=== PATIENT | male | born 1960 | race Caucasian/White ===

== ENCOUNTER → 2019-08-07 11:56 | Outpatient (BNVA) | payer SELFPAY | PROVIDERS: Family Provider Nurse Practitioner Family; Visit Provider Nurse Practitioner Family | DX: I10 Essential (primary) hypertension (principal); E03.9 Hypothyroidism, unspecified; E78.00 Pure hypercholesterolemia, unspecified; E11.9 Type 2 diabetes mellitus without complications; E55.9 Vitamin D deficiency, unspecified | CPT/HCPCS: 80053; 80061; 81001; 82306; 83036; 84443; 85025 ==

== ENCOUNTER → 2019-12-19 14:30 | Outpatient (BNVA) | payer SELFPAY | PROVIDERS: Family Provider Nurse Practitioner Family; Visit Provider Nurse Practitioner Family | DX: I10 Essential (primary) hypertension (principal); E03.9 Hypothyroidism, unspecified; E55.9 Vitamin D deficiency, unspecified; E78.2 Mixed hyperlipidemia; E11.9 Type 2 diabetes mellitus without complications | CPT/HCPCS: 80053; 80061; 81003; 82306; 83036; 83721; 84443 ==

== ENCOUNTER 2020-10-12 11:03 | Emergency (ER) | payer MEDICAID, SELFPAY ==
[2020-10-12 11:58] VITALS: BP 173/107; PULSE 82; RESP 16; TEMP 36.6; O2SAT 96; BMI 29.9
--- NOTE | 2020-10-12 12:56 | CT_ITS ---
WS: [id number] CT foot RT w con [id number] REASON FOR EXAM: Diabetes, infection IV CONTRAST ADMINISTERED: 95 mL of Omnipaque 300. TOTAL EXAM DLP: 193.[address] scans at [facility] use at least one of these dose optimization techniques: automat ed exposure control; mA and/or kV adjustment per patient size (includes targeted exams where dose is matched to clinical indication); or iterative reconstruction. FINDINGS: No diffuse or focal bony abnormality is identified. The joint spaces of the forefoot, midfoot, and hindfoot are intact. The contrast enhancement does not identify any significant inflammatory process or focal fluid collec tion. CT/CT foot RT w con [id number] IMPRESSION: No significant bony or joint abnormality.
--- NOTE | 2020-10-12 12:56 | XR_ITS ---
WS: [id number] XR chest 1V portable [id number] REASON FOR EXAM: covid + FINDINGS: The heart and mediastinum are within normal limits. Calcified granulomatous disease is present bilaterally. No active pulmonary parenchymal or pleural di sease is noted. The bony thorax is intact. The chest is unchanged compared to 06/23/2012. XR/XR chest 1V portable [id number] IMPRESSION: No acute chest abnormality.
--- NOTE | 2020-10-12 13:03 | ED_ITS ---
HPI - Extremity Problem General: Chief complaint: Extremity Problem,Nontraumatic Stated complaint: R foot pain Time Seen by Provider: 10/12/20 12:52 History of Present Illness: HPI Narrative: Patient is Covid positive patient tested 3 days ago. Also developed 2 days ago right foot pain swelling and heat to the area patient is diabetic not sure if he stepped on anything or not swelling extends up to the ankle he says. Patient states that his positive Covid test was at home test that his girlfriend brought home from work and they completed. MD Complaint: extremity pain Onset (ago): day(s) Pain Consistency: constant Location: right and lower extremity Severity scale (1-10): 5 Quality: aching Radiation: proximal Relieving factors: immobilization Exacerbating factors: range of motion and weight bearing Associated symptoms: Reports other (Does have Covid symptoms); Deny chest pain, fever(s) or rash Review of Systems Narrative: Patient is Covid positive Const: Denies: fever(s), chills or body aches Eyes: Denies: change in vision or blurry vision ENMT: Denies: throat pain or nasal congestion Card: Denies: chest pain or dyspnea on exertion Resp: Reports: non-productive cough; Denies: dyspnea or productive cough GI: Denies: abdominal pain, nausea or vomiting : Denies: difficulty urinating Musc: Reports: extremity pain (Right foot pain and swelling x2 days possible puncture wound) and other (Myalgias) Skin/Breast: Denies: rash Neuro: Denies: headache(s) Psych: Denies: anxiety or depression Bernard/Lymph: Denies: easy bruising PFS ED PFSH: Medical History Arthritis Diabetes Essential hypertension Hypothyroid Mixed hyperlipidemia Vitamin D deficiency Social History Smoking and tobacco status: never smoked Second hand smoke exposure: No Smoking risk assessment/counseling performed?: No Alcohol intake: never Desire information about alcohol rehabilitation?: No Counseling given: No Desire information about substance/drug rehabilitation?: No Counseling given: No Physical Exam Const: COMMON NORMALS: no acute distress, average body habitus and patient oriented x3 HENMT: COMMON NORMALS: normocephalic HEAD & SCALP: normal to inspection and normocephalic FACE & SINUS: normal facial exam Eye: COMMON NORMALS: conjunctivae normal GENERAL EYE: appearance normal, both eyes and all related structures CONJUNCTIVA: Yes conjunctivae normal Neck/C-Spine: COMMON NORMALS: no JVD Chest: COMMONS NORMALS: normal inspection of the chest Resp: COMMON NORMALS: normal respiratory effort and clear to auscultation bilaterally AUSCULTATION: clear to auscultation bilaterally Cardio: COMMON NORMALS: no JVD, regular rate and regular rhythm RATE: regular rate RHYTHM: regular rhythm GI: COMMON NORMALS: Normal to inspection, nondistended, normoactive bowel sounds present Extremity: COMMON NORMALS: full ROM RIGHT LOWER EXTREMITY: Yes foot & digits (Right foot with swelling erythema red streak extending to the midfoot with ) OTHER: With possible puncture wound plantar surface this is where the red area and streak extends from tenderness to all areas of the foot. Neuro: COMMON NORMALS: patient oriented x3 Course Vital Signs: Vital signs: Vital Signs Temperature 97.9 F 10/12/20 11:58 Pulse Rate 82 10/12/20 15:59 Respiratory Rate 16 10/12/20 15:59 Blood Pressure 144/83 10/12/20 15:59 Pulse Oximetry 99 10/12/20 15:59 MDM - Extremity (Nontraumatic) MDM Narrative: Medical decision making narrative: Discussed patient's case presenting signs symptoms laboratory and radiology results with Dr. Romo. Agreed on plan to discharge patient follow-up in wound clinic. Patient be placed on 2 different antibiotics. Lab Data: Labs: Lab Results 10/12/20 10/12/20 10/12/20 Range/Units 13:25 13:25 13:25 WBC 11.3 H (4.0-10.0) 10^3/ uL RBC 5.46 H (4.1-5.3) 10^6/u L Hgb 16.3 (11.7-16.6) g/dL Hct 49.4 (42.0-52.0) % MCV 90.5 (80-94) fL MCH 29.9 (28.0-34.0) pg MCHC 33.0 (30.0-36.0) g/dL RDW 13.0 (12.1-15.1) % Plt Count 225 (130-400) 10^3/c mm MPV 11.1 H (7.4-10.4) fL Neut % (Auto) 70.9 % Lymph % (Auto) 18.0 % [place] % (Auto) 9.2 % Eos % (Auto) 1.0 % Baso % (Auto) 0.5 % Neut # (Auto) 8.02 H (1.8-7.7) 10^3/u L Lymph # (Auto) 2.0 (0.8-4.8) 10^3/u L [place] # (Auto) 1.0 H (0.2-0.9) 10^3/u L Eos # (Auto) 0.1 (0.0-0.8) 10^3/u L Baso # (Auto) 0.1 (0.0-0.1) 10^3/u L Nucleated RBC % (a uto) 0 % Nucleated RBCs # 0.0 /100WBC Sodium 136 (136-145) mmol/L Potassium 4.4 (3.5-5.1) mmol/L Chloride 100 (98-107) mmol/L Carbon Dioxide 25 (22-29) mmol/L Anion Gap 15.4 (5-19) BUN 12 (8-23) mg/dL Creatinine 0.8 (0.7-1.2) mg/dL GFR Calculation 98.6 (90-130) mL/min Glucose 265 H (65-115) mg/dL Calculated Osmolal ity 291 (285-295) mOsm/k g Lactate 1.6 (0.5-2.2) mmol/L Calcium 8.9 (8.5-10.5) mg/dL Total Bilirubin 0.6 (0.15-1.2) mg/dL AST 10 (0-40) U/L ALT 12 (0-41) U/L Alkaline Phosphata se 75 (40-130) IU/L Total Protein 7.1 (6.6-8.7) g/dL Albumin 4.4 (3.5-5.2) g/dL Globulin 2.7 (1.3-4.6) g/dL Urine Color (Yellow) Urine Appearance (CLEAR) Urine pH (5-7) Ur Specific Gravit y (1.005-1.030) Urine Protein (Negative) Urine Glucose (UA) (Normal) Urine Ketones (Negative) Urine Blood (Negative) Urine Nitrate (Negative) Urine Bilirubin (Negative) Urine Urobilinogen (Negative) mg/dL Ur Leukocyte Karina ase (Negative) SARS-CoV-2 Ag (Rap id) (Negative) 10/12/20 10/12/20 Range/Units 13:25 14:32 WBC (4.0-10.0) 10^3/ uL RBC (4.1-5.3) 10^6/u L Hgb (11.7-16.6) g/dL Hct (42.0-52.0) % MCV (80-94) fL MCH (28.0-34.0) pg MCHC (30.0-36.0) g/dL RDW (12.1-15.1) % Plt Count (130-400) 10^3/c mm MPV (7.4-10.4) fL Neut % (Auto) % Lymph % (Auto) % [place] % (Auto) % Eos % (Auto) % Baso % (Auto) % Neut # (Auto) (1.8-7.7) 10^3/u L Lymph # (Auto) (0.8-4.8) 10^3/u L [place] # (Auto) (0.2-0.9) 10^3/u L Eos # (Auto) (0.0-0.8) 10^3/u L Baso # (Auto) (0.0-0.1) 10^3/u L Nucleated RBC % (a uto) % Nucleated RBCs # /100WBC Sodium (136-145) mmol/L Potassium (3.5-5.1) mmol/L Chloride (98-107) mmol/L Carbon Dioxide (22-29) mmol/L Anion Gap (5-19) BUN (8-23) mg/dL Creatinine (0.7-1.2) mg/dL GFR Calculation (90-130) mL/min Glucose (65-115) mg/dL Calculated Osmolal ity (285-295) mOsm/k g Lactate (0.5-2.2) mmol/L Calcium (8.5-10.5) mg/dL Total Bilirubin (0.15-1.2) mg/dL AST (0-40) U/L ALT (0-41) U/L Alkaline Phosphata se (40-130) IU/L Total Protein (6.6-8.7) g/dL Albumin (3.5-5.2) g/dL Globulin (1.3-4.6) g/dL Urine Color Yellow (Yellow) Urine Appearance Clear (CLEAR) Urine pH 5 (5-7) Ur Specific Gravit y 1.020 (1.005-1.030) Urine Protein Neg (Negative) Urine Glucose (UA) 4+ H (Normal) Urine Ketones Negative (Negative) Urine Blood Neg (Negative) Urine Nitrate Negative (Negative) Urine Bilirubin Neg (Negative) Urine Urobilinogen Norm (Negative) mg/dL Ur Leukocyte Karina ase Negative (Negative) SARS-CoV-2 Ag (Rap id) Negative (Negative) Discharge Plan Discharge Prescriptions: No Action cholecalciferol (vitamin D3) 50 mcg (2,000 unit) capsule 50 mcg PO QAM RF: 0 Fish Oil 1 cap PO QAM RF: 0 pioglitazone 15 mg tablet 15 mg PO QAM RF: 0 metformin 500 mg tablet 2,000 mg PO QAM RF: 0 levothyroxine 50 mcg tablet 50 mcg PO QAM RF: 0 rosuvastatin 5 mg tablet 5 mg PO QAM RF: 0 Januvia 100 mg tablet 100 mg PO QAM RF: 0 Coding Level of Care Code ED Community Service Patrol Officer for Chg Fwd Exam Comprehensive
[2020-10-12 13:38] LABS: Basophils # 0.1 10^3/uL (0.0-0.1); Basophils % 0.5 %; Eosinophils # 0.1 10^3/uL (0.0-0.8); Hematocrit 49.4 % (42.0-52.0); Hemoglobin 16.3 g/dL (11.7-16.6); Mean Corpuscular Hemoglobin 29.9 pg (28.0-34.0); Mean Corpuscular Volume 90.5 fL (80-94); Mean Platelet Volume 11.1 fL (7.4-10.4); Monocytes % 9.2 %; Neutrophils # 8.02 10^3/uL (1.8-7.7); Neutrophils % 70.9 %; Nucleated Red Blood Cells % 0 %; Platelet Count 225 10^3/cmm (130-400); Red Blood Count 5.46 10^6/uL (4.1-5.3); White Blood Count 11.3 10^3/uL (4.0-10.0)
[2020-10-12 13:57] LABS: Lactate (Lactic Acid level) 1.6 mmol/L (0.5-2.2)
[2020-10-12 13:58] LABS: Alanine Aminotransferase 12 U/L (0-41); Albumin Level 4.4 g/dL (3.5-5.2); Alkaline Phosphatase 75 IU/L (40-130); Anion Gap 15.4 (5-19); Aspartate Amino Transferase 10 U/L (0-40); Blood Urea Nitrogen 12 mg/dL (8-23); Calcium 8.9 mg/dL (8.5-10.5); Carbon Dioxide 25 mmol/L (22-29); Chloride 100 mmol/L (98-107); Globulin 2.7 g/dL (1.3-4.6); Glomerular Filtration Rate 98.6 mL/min (90-130); Glucose 265 mg/dL (65-115); Osmolality Calculated 291 mOsm/kg (285-295); Potassium 4.4 mmol/L (3.5-5.1); Sodium 136 mmol/L (136-145); Total Bilirubin 0.6 mg/dL (0.15-1.2); Total Protein 7.1 g/dL (6.6-8.7)
[2020-10-12 14:05] LABS: SARS Covid-2 Antigen Negative (Negative)
[2020-10-12 14:41] LABS: Add Urine Microscopic? NO; Charge for UA Resulting for Rev
[2020-10-12 14:44] LABS: Bilirubin Urine Neg (Negative); Blood Urine Neg (Negative); Glucose Urine UA 4+ (Normal); Ketones Urine Negative (Negative); Leukocyte Esterase Urine Negative (Negative); Nitrate Urine Negative (Negative); Protein Urine Neg (Negative); Urine Appearance Clear (CLEAR); Urine Color Yellow (Yellow); Urobilinogen Urine Norm (Negative); pH Urine 5 (5-7)
[2020-10-12] MEDS: iohexol 300 mg/mL 100 mL Btl IV (15:32)
[2020-10-12] MEDS: clindamycin 300 MG/50 ML PREMIX 100 MG IV (15:57)
[2020-10-12 15:59] VITALS: BP 144/83; PULSE 82; RESP 16; O2SAT 99
[2020-10-12] MEDS: ciprofloxacin 200 MG/100 ML PREMIX 100 MG IV (16:31)
[2020-10-12 16:34] LABS: INR 1.01 (0.8-1.2)
[2020-10-12] MEDS: HYDROcodone-acetaminophen 5-325 mg Tablet 1 TAB PO (16:56)
[2020-10-12] MEDS: tetanus-dipt-pertussis 0.5 mL SDV IM (16:57)
[2020-10-12 17:32] VITALS: PULSE 87; RESP 16; O2SAT 98
--- NOTE | 2020-10-13 10:33 | DCPLANNER ---
live study manager had message to schedule a follow up appointment for patient with Wound Care. live study manager called Wound Care, spoke with Coby, gave clinic patients information. A follow up appointment was scheduled for Monday, October 14, 2020 at 8:30. live study manager called patient and gave patient the appointment information. Patients significant other stated that patient took a home COVID test, and it was positive, and she has reported it the positive to the [facility]. live study manager gave patient the phone number to Wound Care for patient to reschedule appointment after patient is off quarantine. live study manager called and updated Coby at Wound Care.
== END 2020-10-12 17:33 | disposition home or self-care (01) ==
PROVIDERS: Emergency Provider Nurse Practitioner Family; PCP Nurse Practitioner Family
DX: M79.671 Pain in right foot (principal); R22.41 Localized swelling, mass and lump, right lower limb; U07.1 COVID-19; E11.9 Type 2 diabetes mellitus without complications; I10 Essential (primary) hypertension; E03.9 Hypothyroidism, unspecified; E78.2 Mixed hyperlipidemia; Z79.84 Long term (current) use of oral hypoglycemic drugs
CPT/HCPCS: 71045; 73701; 80053; 81003; 83605; 85025; 85610; 87040; 87426; 90471; 90715; 96365; 96367; 99284; J0744; J3490; Q9967

== ENCOUNTER → 2021-02-18 11:48 | Outpatient (BNVA) | payer MEDICAID, SELFPAY | PROVIDERS: PCP Nurse Practitioner Family; Visit Provider Nurse Practitioner Family | DX: E11.9 Type 2 diabetes mellitus without complications (principal); E55.9 Vitamin D deficiency, unspecified; E03.9 Hypothyroidism, unspecified; Z12.5 Encounter for screening for malignant neoplasm of prostate; E78.2 Mixed hyperlipidemia; Z12.11 Encounter for screening for malignant neoplasm of colon | CPT/HCPCS: 80053; 80061; 81003; 82306; 83036; 84439; 84443; 85025; G0103 ==

== ENCOUNTER → 2021-04-28 10:48 | Outpatient (BNVA) | payer MEDICAID, SELFPAY | PROVIDERS: PCP Nurse Practitioner Family; Visit Provider Surgery | DX: Z01.812 Encounter for preprocedural laboratory examination (principal); Z20.822 Contact with and (suspected) exposure to COVID-19 | CPT/HCPCS: 87635 ==

== ENCOUNTER 2021-04-30 07:26 | Day surgery (SDC) | payer MEDICAID, SELFPAY ==
[2021-04-29 08:05] VITALS: BMI 30.7
--- NOTE | 2021-04-30 08:00 | ANES.PREANE2 ---
Pre-Anesthetic Assessment Height/Weight: Height 1.65 m Weight 83.915 kg Operation Date: 04/30/21 08:45 Proposed Procedures p Colonoscopy 09382 Z12.11(Not Applicable) - Gary Anthony MD Familial anesthetic complications: None Was Beta Lashell taken within 24 hours: N/A Was Clonidine taken within 24 hours: N/A Social No alcohol and No tobacco Exam alert, oriented x 3, clear to auscultation bilaterally and regular rate & rhythm Airway Submandibular: within normal limits Cervical ROM: within normal limits Mallampati: Class II Dentition: false Metabolic Diabetes Mellitus, Hyperlipidemia and Thyroid Disease Anesthetic Plan ASA status: 3 Anesthesia: MAC Medications/Allergies Home Medications Medication Instructions Recorded Confirmed Last Taken Type cholecalciferol (vitamin D3) 50 50 mcg PO QAM 08/21/20 04/29/21 10/12/20 08:00 History mcg (2,000 unit) capsule levothyroxine 50 mcg tablet See Rx Instructions .ROUTE 03/23/21 04/29/21 Unknown Rx .COMPLEX #30 tab rosuvastatin 5 mg tablet 5 mg PO QAM #30 tab 03/25/21 04/29/21 Unknown Rx pioglitazone 15 mg tablet See Rx Instructions .ROUTE 03/29/21 04/29/21 Unknown Rx .COMPLEX #30 tab semaglutide (Ozempic) 0.25 mg (0.2 mL) SUBCUT .weekly 30 04/14/21 04/29/21 Unknown Rx Days #1.5 ml metformin 500 mg tablet See Rx Instructions .ROUTE 04/19/21 04/29/21 Unknown Rx .COMPLEX #360 tab Allergies Allergy/AdvReac Type Severity Reaction Status Date / Time empagliflozin Allergy Severe ALGY-Wheezi Verified 02/24/21 13:13 [From Jardipresley] [facility] Anesthesia Medical History Arthritis Colon cancer screening Diabetes Essential hypertension Hypothyroid Mixed hyperlipidemia Prostate cancer screening Vitamin D deficiency Social History Smoking and tobacco status: never smoked Second hand smoke exposure: No Smoking risk assessment/counseling performed?: No Alcohol intake: never Desire information about alcohol rehabilitation?: No Counseling given: No Desire information about substance/drug rehabilitation?: No Counseling given: No Data Anesthesia Cardiac Studies: No Data to Display
[2021-04-30 08:19] VITALS: BP 129/92; PULSE 87; RESP 18; TEMP 37.1; O2SAT 98
[2021-04-30] MEDS: sodium chloride 0.9% 1,000 ML 30 ML IV (08:33)
--- NOTE | 2021-04-30 09:31 | P.HP_ITS ---
Same Day Surgery H&P Indication for Procedure/HPI DATE OF PROCEDURE: April 30, 2021 CHIEF COMPLAINT/INDICATIONFOR SURGICAL PROCEDURE: screening PREOP DIAGNOSIS: diagnostic PLANNED PROCEDURE: Operation Date: 04/30/21 08:45 Proposed Procedures p Colonoscopy 38820 Z12.11(Not Applicable) - Gary Anthony MD Medications/Allergies* Home Medications Medication Instructions Recorded Confirmed Type cholecalciferol (vitamin D3) 50 50 mcg PO QAM 08/21/20 04/29/21 History mcg (2,000 unit) capsule levothyroxine 50 mcg tablet 50 mcg PO DAILY 04/30/21 04/30/21 History metformin 500 mg tablet 2,000 mg PO DAILY 04/30/21 04/30/21 History pioglitazone 15 mg tablet (Actos) 15 mg PO DAILY 04/30/21 04/30/21 History Allergies/Adverse Reactions Allergy/AdvReac Type Severity Reaction Status Date / Time empagliflozin Allergy Severe ALGY-Wheezi Verified 02/24/21 13:13 [From Jardiance] ng Current Medications: Generic Name Dose Route Start Last Admin Trade Name Freq PRN Reason Stop Dose Admin Sodium Chloride 1,000 mls @ 30 mls/hr 04/30/21 08:15 04/30/21 08:33 Sodium Chloride 0.9% IV 05/01/21 08:14 30 mls/hr .Q24H ALEXANDREA Administration Pertinent History/Comorbid Conditions* Medical History (Updated 02/18/21 @ 11:29 by ANTONY Ace) Arthritis Colon cancer screening Diabetes Essential hypertension Hypothyroid Mixed hyperlipidemia Prostate cancer screening Vitamin D deficiency Social History Smoking and tobacco status: never smoked Second hand smoke exposure: No Smoking risk assessment/counseling performed?: No Alcohol intake: never Desire information about alcohol rehabilitation?: No Counseling given: No Desire information about substance/drug rehabilitation?: No Counseling given: No Pertinent Exam Findings alert, oriented x 3 and regular rate & rhythm Recommendations Surgery/Procedure today Coding Level of Care Code Acute Clinical Information Systems Director for Roldan Cervantes
[2021-04-30 10:11] VITALS: BP 113/79; PULSE 71; RESP 16; TEMP 36.1; O2SAT 96
[2021-04-30 10:23] VITALS: BP 112/75; PULSE 78; RESP 16; O2SAT 97
--- NOTE | 2021-04-30 10:59 | ANE.PACU2 ---
Documented by User: Miguel A Delgadillo Jr, CRNA 04/30/21 11:00 Inpatient post-anesthesia follow up: Airway intact: Yes Vital signs: Temperature 97 F Pulse Rate 78 Respiratory Rate 16 Blood Pressure 112/75 Pulse Oximetry 97 Oxygen Delivery Me thod Room Air Oxygen Flow Rate Fraction of Inspir ed Oxygen Hydration adequate: Yes Nausea and vomiting: No Pain level: 1 Mental status: Baseline
== END 2021-04-30 10:34 | disposition home or self-care (01) ==
PROVIDERS: PCP Nurse Practitioner Family; Visit Provider Surgery
PROC: 0DJD8ZZ Inspection of Lower Intestinal Tract, Via Natural or Artificial Opening Endoscopic (ICD-10-PCS; CPT 45378; principal; 2021-04-30 08:45)
DX: Z12.11 Encounter for screening for malignant neoplasm of colon (principal); K57.30 Diverticulosis of large intestine without perforation or abscess without bleeding; D12.5 Benign neoplasm of sigmoid colon; D12.8 Benign neoplasm of rectum; E11.9 Type 2 diabetes mellitus without complications; M19.90 Unspecified osteoarthritis, unspecified site; I10 Essential (primary) hypertension; E03.9 Hypothyroidism, unspecified; E78.2 Mixed hyperlipidemia
CPT/HCPCS: 45380; 88305; J2704; J7030

== ENCOUNTER → 2021-07-13 08:54 | Outpatient (BNVA) | payer MEDICAID, SELFPAY | PROVIDERS: PCP Nurse Practitioner Family; Visit Provider Nurse Practitioner | DX: E11.9 Type 2 diabetes mellitus without complications (principal); I10 Essential (primary) hypertension | CPT/HCPCS: 80053; 83036 ==

== ENCOUNTER → 2021-08-30 10:51 | Outpatient (BNVA) | payer MEDICAID, SELFPAY | PROVIDERS: PCP Nurse Practitioner Family; Visit Provider Nurse Practitioner | DX: H46.9 Unspecified optic neuritis (principal) | CPT/HCPCS: 80053; 85025; 85651; 86592; 86611; 86617; 87806 ==

== ENCOUNTER → 2021-11-09 12:45 | Outpatient (BNVA) | payer MEDICAID, SELFPAY | PROVIDERS: PCP Nurse Practitioner Family; Visit Provider Nurse Practitioner | DX: E11.9 Type 2 diabetes mellitus without complications (principal) | CPT/HCPCS: 83036 ==

== ENCOUNTER → 2022-07-12 11:02 | Outpatient (BNVA) | payer MEDICARE, MEDICAID, SELFPAY | PROVIDERS: PCP Nurse Practitioner; Visit Provider Nurse Practitioner | DX: Z12.5 Encounter for screening for malignant neoplasm of prostate (principal); E11.9 Type 2 diabetes mellitus without complications; E03.9 Hypothyroidism, unspecified; I10 Essential (primary) hypertension; E78.2 Mixed hyperlipidemia | CPT/HCPCS: 80053; 80061; 83036; 84443; 85025; G0103 ==

== ENCOUNTER → 2023-03-23 10:27 | Outpatient (BNVA) | payer MEDICARE, MEDICAID, SELFPAY | PROVIDERS: PCP Nurse Practitioner; Visit Provider Nurse Practitioner Family | DX: E55.9 Vitamin D deficiency, unspecified (principal); E11.9 Type 2 diabetes mellitus without complications; E03.9 Hypothyroidism, unspecified; I10 Essential (primary) hypertension; E78.2 Mixed hyperlipidemia; Z12.5 Encounter for screening for malignant neoplasm of prostate; H60.90 Unspecified otitis externa, unspecified ear | CPT/HCPCS: 80053; 80061; 81003; 82306; 83036; 84443; 85025; G0103 ==

== ENCOUNTER → 2024-03-19 10:27 | Outpatient (BNVA) | payer MEDICARE, MEDICAID, SELFPAY | PROVIDERS: PCP Nurse Practitioner Family; Visit Provider Nurse Practitioner Family | DX: I10 Essential (primary) hypertension (principal); E78.2 Mixed hyperlipidemia; E11.9 Type 2 diabetes mellitus without complications; E03.9 Hypothyroidism, unspecified; E55.9 Vitamin D deficiency, unspecified | CPT/HCPCS: 80053; 80061; 81003; 82306; 83036; 84443; 85025 ==

== ENCOUNTER → 2024-09-25 10:59 | Outpatient (BNVA) | payer MEDICARE, MEDICAID, SELFPAY | PROVIDERS: PCP Nurse Practitioner Family; Visit Provider Nurse Practitioner Family | DX: E11.9 Type 2 diabetes mellitus without complications (principal); E55.9 Vitamin D deficiency, unspecified; I10 Essential (primary) hypertension; E78.2 Mixed hyperlipidemia; E03.9 Hypothyroidism, unspecified; Z12.5 Encounter for screening for malignant neoplasm of prostate | CPT/HCPCS: 80053; 80061; 81003; 82306; 83036; 84443; 85025; G0103 ==